=== PATIENT | female | born 1975 | race Caucasian/White ===

== ENCOUNTER 2018-03-07 20:14 | Emergency (ER) | payer OTHER ==
[~2018-03-07] VITALS: Ht 165.1 cm; Wt 154.5 kg
[2018-03-07 20:17] VITALS: TEMP 36.7; Ht 165.1 cm; Wt 154.5 kg
[2018-03-07] MEDS ORDERED: ALBUT/IPRATROP 3MG/0.5MG NEB 3 ML VIAL INH STA (20:24)
[2018-03-07 20:25] VITALS: O2SAT 91
[2018-03-07] MEDS ORDERED: METHYLPREDNISOLONE 125 MG VIAL IV STA (20:26)
[2018-03-07 20:52] LABS: BASO % 0.3 %; BASO ABS # 0.03 K/uL (0-0.2); EOS % 2.3 %; EOS ABS # 0.21 K/uL (0-0.5); HEMATOCRIT 48.3 % (37-47); HEMOGLOBIN 15.8 g/dL (12.0-16.0); IG# 0.02 K/uL (0.00-0.02); LYMPH % 15.1 %; LYMPH ABS # 1.36 K/uL (1.2-3.4); MEAN CELL VOLUME 85.2 fL (80-100); MEAN CORPUSCULAR HEMOGLOBIN 27.9 pg (25-34); MEAN CORPUSCULAR HGB CONC 32.7 g/dl (32-36); MEAN PLATELET VOLUME 12.1 fL (7.4-10.4); MONO % 8.3 %; MONO ABS # 0.75 K/uL (0.11-0.59); NEUT % 73.8 %; NEUT ABS # 6.64 K/uL (1.4-6.5); PLATELET COUNT 151 K/uL (130-400); RED CELL DISTRIBUTION WIDTH CV 16.1 % (11.5-14.5); RED CELL DISTRIBUTION WIDTH SD 50.4 fL (36.4-46.3); WHITE BLOOD COUNT 9.01 K/uL (4.8-10.8)
[2018-03-07] MEDS ORDERED: PRT/20 PO (21:06)
[2018-03-07] MEDS ORDERED: ADVIN25/60 INH (21:06)
[2018-03-07] MEDS ORDERED: THEO600T PO (21:06)
[2018-03-07] MEDS ORDERED: ACET-1256 PO (21:06)
[2018-03-07] MEDS ORDERED: MELO-84 PO (21:06)
[2018-03-07] MEDS ORDERED: CZR25 PO (21:06)
[2018-03-07] MEDS ORDERED: MONT1TAB3 PO (21:06)
[2018-03-07 21:08] LABS: ALBUMIN 3.3 gm/dl (3.4-5.0); ALT/SGPT 14 U/L (12-78); AST/SGOT 7 U/L (15-37); BLOOD UREA NITROGEN 16 mg/dl (7-18); CALCIUM 8.7 mg/dl (8.5-10.1); CARBON DIOXIDE 30 mmol/L (21-32); CREATININE 0.87 mg/dl (0.60-1.20); GLUCOSE 107 mg/dl (70-99); POTASSIUM 3.8 mmol/L (3.5-5.1); SODIUM 142 mmol/L (136-145)
[2018-03-07 21:13] LABS: ALKALINE PHOSPHATASE 98 U/L (45-117); TOTAL PROTEIN 7.3 gm/dl (6.4-8.2)
--- NOTE | 2018-03-07 21:18 | DIAGNOSTIC IMAGING REPORT ---
SINGLE VIEW CHEST CLINICAL HISTORY: Dyspnea. FINDINGS: An AP, portable, upright chest radiograph is obtained. No prior studies are available for comparison at the time of dictation. The examination is degraded by portable technique and patient rotation. The cardiomediastinal silhouette is unremarkable. There is mild nonspecific interstitial thickening. No airspace consolidation or pleural effusion is identified. No pneumothorax is seen. The bony thorax is grossly intact. IMPRESSION: 1. Mild interstitial thickening is nonspecific and may resent a mild infectious/inflammatory pneumonitis. Clinical correlation will be required. 2. No airspace consolidation or pleural effusion is identified. Electronically signed by: Nii Salgado M.D. 03/07/2018 9:17 PM Dictated Date/Time: 03/07/2018 9:16 PM
[2018-03-07] MEDS ORDERED: LEVAQUIN 750MG / 150ML D5W IV STA (21:24)
[2018-03-07] MEDS ORDERED: LEVOFLOXACIN 250 MG TAB PO STA (21:27)
[2018-03-07] MEDS ORDERED: LEVO1TAB35 PO (21:30)
[2018-03-07] MEDS ORDERED: ALBUTEROL HFA 8 GM INHALER INH ONE (21:30)
[2018-03-07] MEDS ORDERED: PRED20TA2 PO (21:30)
[2018-03-07] MEDS ORDERED: VNTHFA/IN INH (21:30)
--- NOTE | 2018-03-07 21:46 | EMERGENCY ROOM VISIT NOTE ---
History Report prepared by Padmini: Katrina Brito Under the Supervision of: Dr. Dwayne Nieves D.O. First contact with patient: 20:21 Chief Complaint: SHORTNESS OF BREATH Stated Complaint: CAN'T BREATH, ASTHMA History of Present Illness The patient is a 43 year old female who presents to the Emergency Room with complaints of persistent SOB starting earlier today. The patient was diagnosed with pneumonia several weeks ago and was on antibiotics. She thinks that her pneumonia is coming back. She is feeling SOB and has pain in her right shoulder blade. She has had a cough producing dark yellow sputum. She has been using her inhalers. She has a history of asthma. She was started on medications for hypertension last week. She smokes 0.5 ppd. Source of History: patient Onset: earlier today Position: chest Quality: other (SOB) Timing: other (persistent) Associated Symptoms: + cough Note: Pt reports right shoulder blade pain. Review of Systems See HPI for pertinent positives & negatives. A total of 10 systems reviewed and were otherwise negative. Past Medical & Surgical Medical Problems: (1) Asthma (2) Pneumonia Family History No pertinent family history stated. Social History Smoking Status: Current Every Day Smoker Marital Status: Occupation Status: unemployed Current/Historical Medications Scheduled Albuterol Hfa (Ventolin Hfa), 2 PUFF INH Q4 Fluticasone Prop/Salmeterol (Advair Diskus 250/50 60 Dose), 1 PUFF INH BID Levofloxacin (Levaquin), 750 MG PO DAILY Losartan Potassium (Losartan Potassium), 25 MG PO QAM Meloxicam (Mobic), 15 MG PO QAM Montelukast Sodium (Singulair), 10 MG PO QAM Pantoprazole (Protonix), 20 MG PO QAM Prednisone (Prednisone Tab), 40 MG PO DAILY Theophylline (Theophylline Er), 600 MG PO QAM Scheduled PRN Acetaminophen (Tylenol), 1,000 MG PO DIRECTED PRN for Pain or Fever Allergies Coded Allergies: Rofecoxib (Verified Allergy, Severe, RESPIRATORY FAILURE, 03/07/18) Physical Exam Vital Signs Date Time Temp Pulse Resp B/P (MAP) Pulse Ox O2 Delivery O2 Flow Rate FiO2 03/07/18 21:56 81 22 184/113 91 03/07/18 20:46 94 Nasal Cannula 3.0 03/07/18 20:31 92 03/07/18 20:25 91 Nasal Cannula 3.0 03/07/18 20:24 88 Room Air 03/07/18 20:17 36.7 89 18 212/144 89 Room Air Physical Exam GENERAL: Patient is awake, alert, mildly anxious appearing, but comfortable. EYES: The conjunctivae are clear. The pupils are round and reactive. EARS, NOSE, MOUTH AND THROAT: The nose is without any evidence of any deformity. Mucous membranes are moist tongue is midline NECK: The neck is nontender and supple. RESPIRATORY: Lung sounds diminished throughout with expiratory wheezes in all qiu. Poor air movement was noted. CARDIOVASCULAR: Regular rate and rhythm noted there no murmurs rubs or gallops normal S1 normal S2 GASTROINTESTINAL: The abdomen is soft. Bowel sounds are present in all quadrants. Abdomen is nontender MUSCULOSKELETAL/EXTREMITIES: There is no evidence of gross deformity full range of motion is noted in the hips and shoulders SKIN: There is no obvious evidence of any rash. There are no petechiae, pallor or cyanosis noted. NEUROLOGIC: Patient is awake alert and oriented x3 Medical Decision & Procedures ER Provider Diagnostic Interpretation: X-ray results as stated below per interpretation by me and the radiologist. SINGLE VIEW CHEST CLINICAL HISTORY: Dyspnea. FINDINGS: An AP, portable, upright chest radiograph is obtained. No prior studies are available for comparison at the time of dictation. The examination is degraded by portable technique and patient rotation. The cardiomediastinal silhouette is unremarkable. There is mild nonspecific interstitial thickening. No airspace consolidation or pleural effusion is identified. No pneumothorax is seen. The bony thorax is grossly intact. IMPRESSION: 1. Mild interstitial thickening is nonspecific and may resent a mild infectious/inflammatory pneumonitis. Clinical correlation will be required. 2. No airspace consolidation or pleural effusion is identified. Electronically signed by: Nii Salgado M.D. 03/07/2018 9:17 PM Dictated Date/Time: 03/07/2018 9:16 PM Laboratory Results 03/07/18 20:28 Red Blood Count 5.67, Mean Corpuscular Volume 85.2, Mean Corpuscular Hemoglobin 27.9, Mean Corpuscular Hemoglobin Concent 32.7, Mean Platelet Volume 12.1, Neutrophils (%) (Auto) 73.8, Lymphocytes (%) (Auto) 15.1, Monocytes (%) (Auto) 8.3, Eosinophils (%) (Auto) 2.3, Basophils (%) (Auto) 0.3, Neutrophils # (Auto) 6.64, Lymphocytes # (Auto) 1.36, Monocytes # (Auto) 0.75, Eosinophils # (Auto) 0.21, Basophils # (Auto) 0.03 03/07/18 20:28 Test 03/07/18 20:28 03/07/18 20:36 03/07/18 20:45 White Blood Count 9.01 K/uL (4.8-10.8) Red Blood Count 5.67 M/uL (4.2-5.4) Hemoglobin 15.8 g/dL (12.0-16.0) Hematocrit 48.3 % (37-47) Mean Corpuscular Volume 85.2 fL (80-100) Mean Corpuscular Hemoglobin 27.9 pg (25-34) Mean Corpuscular Hemoglobin Concent 32.7 g/dl (32-36) Platelet Count 151 K/uL (130-400) Mean Platelet Volume 12.1 fL (7.4-10.4) Neutrophils (%) (Auto) 73.8 % Lymphocytes (%) (Auto) 15.1 % Monocytes (%) (Auto) 8.3 % Eosinophils (%) (Auto) 2.3 % Basophils (%) (Auto) 0.3 % Neutrophils # (Auto) 6.64 K/uL (1.4-6.5) Lymphocytes # (Auto) 1.36 K/uL (1.2-3.4) Monocytes # (Auto) 0.75 K/uL (0.11-0.59) Eosinophils # (Auto) 0.21 K/uL (0-0.5) Basophils # (Auto) 0.03 K/uL (0-0.2) RDW Standard Deviation 50.4 fL (36.4-46.3) RDW Coefficient of Variation 16.1 % (11.5-14.5) Immature Granulocyte % (Auto) 0.2 % Immature Granulocyte # (Auto) 0.02 K/uL (0.00-0.02) Prothrombin Time 10.6 SECONDS (9.0-12.0) Prothromb Time International Ratio 1.0 (0.9-1.1) Activated Partial Thromboplast Time 27.0 SECONDS (21.0-31.0) Partial Thromboplastin Ratio 1.0 Anion Gap 6.0 mmol/L (3-11) Est Creatinine Clear Calc Drug Dose 125.1 ml/min Estimated GFR () 93.9 Estimated GFR (Non- 81.0 BUN/Creatinine Ratio 18.5 (10-20) Calcium Level 8.7 mg/dl (8.5-10.1) Total Bilirubin 0.3 mg/dl (0.2-1) Aspartate Amino Transf (AST/SGOT) 7 U/L (15-37) Alanine Aminotransferase (ALT/SGPT) 14 U/L (12-78) Alkaline Phosphatase 98 U/L (45-117) Troponin I < 0.015 ng/ml (0-0.045) Pro-B-Type Natriuretic Peptide 593 pg/ml (0-450) Total Protein 7.3 gm/dl (6.4-8.2) Albumin 3.3 gm/dl (3.4-5.0) Globulin 4.0 gm/dl (2.5-4.0) Albumin/Globulin Ratio 0.8 (0.9-2) Human Chorionic Gonadotropin, Qual NEG (NEG) Theophylline Level < 2 mcg/ml (10-20) Venous Blood pH 7.39 (7.36-7.41) Venous Blood Partial Pressure CO2 55 mmHg (38.0-50.0) Venous Blood Partial Pressure O2 30 mmHg Venous Blood HCO3 32 mmol/L Venous Blood Oxygen Saturation < 60.0 % Venous Blood Base Excess 5.3 mEq/L Bedside D-Dimer 278 ng/mlFEU (0-450) Laboratory results per my review. Medications Administered Medications (Trade) Dose Ordered Sig/Milly Route Start Time Stop Time Status Last Admin Dose Admin Albuterol/ Ipratropium (Duoneb) 3 ml NOW STAT INH 03/07/18 20:24 03/07/18 20:26 DC 03/07/18 20:39 3 ML Methylprednisolone Sodium Succinate (Solu-Medrol IV) 125 mg NOW STAT IV 03/07/18 20:26 03/07/18 20:27 DC 03/07/18 20:39 125 MG Levofloxacin (Levaquin Tab) 750 mg NOW STAT PO 03/07/18 21:27 03/07/18 21:28 DC 4/29/18 21:52 750 MG Albuterol (Ventolin Hfa Inhaler) 2 puffs NOW ONCE INH 03/07/18 21:30 03/07/18 21:31 DC 03/07/18 21:52 2 PUFFS ECG Per My Interpretation Indication: SOB/dyspnea Rate (beats per minute): 77 Rhythm: normal sinus Findings: nonspecific-ST abn (Inferior, Lateral), no ectopy Comparison ECG Date: no prior available ED Course 2022: The patient was evaluated in room A2. A complete history and physical examination were performed. 2023: Duoneb 3 ml INH. 2025: Solu-Medrol IV 125 mg IV. 2123: Levofloxacin 750 mg IV. 2124: Upon reevaluation, the patient is resting comfortably. I discussed the results and treatment plan with her. She verbalized agreement of the treatment plan. She was discharged home. 2126: Levofloxacin 750 mg PO. 2129: Albuterol 2 puffs INH. Medical Decision Prior records/ancillary studies reviewed. Triage Nursing notes reviewed. The patient's history was concerning for respiratory difficulties. Differential diagnosis: Etiologies such as infections, reactive airway disease, pneumonia, pneumothorax , COPD, CHF, cardiac ischemia, pulmonary embolism, musculoskeletal, gastrointestinal, as well as others were entertained. The patient is a 43-year-old female who presented to the emergency department for an evaluation of very severe shortness of breath. The patient has a history of asthma. Her overall physical exam appear to be consistent with bronchospasm. She was treated with IV fluids IV steroids as well as bronchodilator therapy. Her symptoms continue to improve. She was hypoxic and given her overall condition she was given an antibiotic. I recommended that she stay in the hospital for inpatient management given her hypoxia and her overall condition but the patient refused to stay in the hospital. She was encouraged to rest and avoid any strenuous activity. She was also encouraged to continue all medications as prescribed. I also encouraged her to follow-up with her primary care physician in the morning but return to the emergency department immediately if symptoms change worsen or the need arises. Medication Reconcilliation Current Medication List: was personally reviewed by me Blood Pressure Screening Patient's blood pressure: Elevated blood pressure Blood pressure disposition: Elevated BP felt to be situational Impression Primary Impression: Bronchitis Additional Impressions: Hypoxia Asthma exacerbation Scribe Attestation The scribe's documentation has been prepared under my direction and personally reviewed by me in its entirety. I confirm that the note above accurately reflects all work, treatment, procedures, and medical decision making performed by me. Departure Information Dispostion Home / Self-Care Prescriptions Levofloxacin (Levaquin) 750 Mg Tab 750 MG PO DAILY, #5 TAB Prov: Dwayne Nieves, DO 03/07/18 Prednisone (Prednisone Tab) 20 Mg Tab 40 MG PO DAILY, #10 TAB Prov: Dwayne Nieves, DO 03/07/18 Albuterol Hfa (VENTOLIN HFA) 200 Puffs/95659 Mcg Aers 2 PUFF INH Q4, #1 INHALER Prov: Dwayne Nieves, DO 03/07/18 Referrals Herminio Faith D.O. No Doctor, Assigned Forms HOME CARE DOCUMENTATION FORM, IMPORTANT VISIT INFORMATION Patient Instructions Bronchitis Acute, ED Smoking Cessation, My [facility] Additional Instructions Continue all medications as prescribed. Rest and avoid any strenuous activity. Try to avoid any tobacco use. Call your family doctor to schedule a follow- up appointment. Return to the emergency department immediately if symptoms change worsen or the need arises. Problem Qualifiers Additional Impressions: Asthma exacerbation Asthma severity: moderate Asthma persistence: persistent Qualified Codes: J45.41 - Moderate persistent asthma with (acute) exacerbation
[2018-03-07 21:56] VITALS: BP 184/113; PULSE 81; O2SAT 91
== END 2018-03-07 21:57 | disposition home or self-care (01) ==
LOC: C.EDB 20:16 → C.EDA 21:57
DX: J40 Bronchitis, not specified as acute or chronic (principal); J45.41 Moderate persistent asthma with (acute) exacerbation; R09.02 Hypoxemia; Z79.899 Other long term (current) drug therapy

== ENCOUNTER 2021-02-07 21:58 | Observation (INO) ==
--- OUTSIDE RECORDS SUMMARY | 2021-02-07 22:02 | External Medical Summary | Continuity of Care Document ---
:1975 Author Name Quique Liang Address Unavailable Unavailable , Care Team Providers Name Role Phone Gm Bean [email or web address] [place] Ashley Unavailable Unavailable Problems Hypertension (401.9) (I10) Arthritis (716.90) (M19.90) Asthma (493.90) (J45.909) COPD (chronic obstructive pulmonary disease) (496) (J44.9) Allergies and Adverse Reactions Vioxx (Allergy) Reaction: Shortness of breath Medications Advair Diskus 500-50 MCG/DOSE Inhalation Aerosol Powder Breath Activated; INHALE 1 PUFF TWICE DAILY. Start: 05-Mar-2016 Refills: 0 Pantoprazole Sodium 20 MG Oral Tablet Delayed Release; TAKE 1 TABLET DAILY. Start: 05-Mar-2016 Refills: 0 Theophylline ER 300 MG Oral Tablet Exten ded Release 12 Hour; TAKE 1 TABLET DAILY. Start: 05-Mar-2016 Refills: 0 traMADol HCl - 50 MG Oral Tablet; TAKE 1 TABLET EVERY 6 HOURS NEEDED FOR PAIN. Start: 05-Mar-2016 Quantity: 10 Refills: 0 Montelukast Sodium 10 MG Oral Tablet; TAKE 1 TABLET DAILY. Start: 05-Mar-2016 Refills: 0 Procedures History of Biopsy Soft Tissue Of The Thigh Status: Completed Immunizations Immunizations not documented Family History Sister Family history of hypertension (V17.49) (Z82.49) Status: Act clary Brother Family history of hypertension (V17.49) (Z82.49) Status: Act clary Mother Family history of asthma (V17.5) (Z82.5) Status: Active Social History - Smoking Status Smoker Plan of Treatment Planned Observations Planned Goals not documented Results No Known Results Results not documented
[2021-02-07] MEDS ORDERED: ALBUT/IPRATROP 3MG/0.5MG NEB 3 ML VIAL INH STA (22:21)
[2021-02-07] MEDS ORDERED: methylPREDNISolone 125 MG/2 ML VIAL IV STA (22:21)
[2021-02-07 22:28] LABS: Basophils # (auto) 0.05 K/uL (0-0.2); Basophils % (auto) 0.5 %; Eosinophils # (auto) 0.23 K/uL (0-0.5); Eosinophils % (auto) 2.2 %; Hematocrit (blood only) 51.8 % (37-47); Hemoglobin 16.8 g/dL (12.0-16.0); Immature Granulocytes # (auto) 0.03 K/uL (0.00-0.02); Immature Granulocytes % (auto) 0.3 %; Lymphocytes # (auto) 0.96 K/uL (1.2-3.4); Lymphocytes % (auto) 9.2 %; Mean Corpuscular Hemoglobin 28.1 pg (25-34); Mean Corpuscular Hgb Conc 32.4 g/dL (32-36); Mean Corpuscular Volume 86.8 fL (80-100); Mean Platelet Volume 11.7 fL (7.4-10.4); Monocytes # (auto) 0.67 K/uL (0.11-0.59); Monocytes % (auto) 6.4 %; Neutrophils # (auto) 8.48 K/uL (1.4-6.5); Neutrophils % (auto) 81.4 %; Platelet Count 208 K/uL (130-400); RDW Coefficient of Variation 16.1 % (11.5-14.5); RDW Standard Deviation 51.8 fL (36.4-46.3); Red Blood Count 5.97 M/uL (4.2-5.4); White Blood Count 10.42 K/uL (4.8-10.8)
[2021-02-07] MEDS: MAGNESIUM SULFATE / D5W 1 GM/100 ML BAG IV SCH ×2 (22:29→23:32)
[2021-02-07] MEDS ORDERED: SODIUM CHLORIDE 0.9% 1000ML 1,000 ML IV SCH (22:30)
[2021-02-07 22:41] LABS: Partial Thromboplastin Ratio 1.1; Partial Thromboplastin Time 27.9 Seconds (21.0-31.0)
[2021-02-07 22:53] LABS: Alanine Aminotransferase 16 U/L (12-78); Albumin Globulin Ratio 0.9 (0.9-2); Albumin Level 3.5 gm/dl (3.4-5.0); Alkaline Phosphatase 101 U/L (45-117); Aspartate Aminotransferase 11 U/L (15-37); BUN Creatinine Ratio 24.8 (10-20); Bilirubin,Total 0.2 mg/dl (0.2-1); Blood Urea Nitrogen 18 mg/dl (7-18); Calcium 8.9 mg/dl (8.5-10.1); Carbon Dioxide 29 mmol/L (21-32); Chloride 108 mmol/L (98-107); Est GFR (African American) 113.7; Est GFR (Non-African American) 98.1; Globulin 3.9 gm/dl (2.5-4.0); Glucose 126 mg/dl (70-99); Magnesium 2.1 mg/dl (1.8-2.4); NT Pro B Type Natriuretic Pept 199 pg/ml (0-450); Potassium 3.8 mmol/L (3.5-5.1); Sodium 138 mmol/L (136-145); Total Protein 7.4 gm/dl (6.4-8.2); Troponin I < 0.015 ng/ml (0-0.045)
[2021-02-07 23:14] LABS: Base Excess VBG 2.2 mEq/L; Oxygen Saturation VBG 62.6 %; pH VBG 7.32 (7.36-7.41)
[2021-02-07 23:14] LABS: Influenza A virus by PCR Negative (Neg); Influenza B virus by PCR Negative (Neg); RSV by PCR Negative (Neg); SARS CoV2 RNA(COVID-19) InHosp NEGATIVE (Negative)
--- NOTE | 2021-02-07 23:22 | Emergency Department Note ---
Impression & Plan Acute respiratory failure with hypoxia and hypercapnia, Acute exacerbation of chronic obstructive pulmonary disease ED Provider Note NAME: VICENTE ARREOLA AGE: 46 SEX: F : 1975 ARRIVES VIA: Ambulance INFORMANT: Patient, ED PROVIDER(S): Real Torres MD Chief Complaint: Shortness of breath HPI: Patient does present with shortness of breath. The patient states that it began earlier today. The patient does have a known history of COPD and states that she is supposed to be on oxygen 2 to 3 L as needed but has not used it. Patient is also does use CPAP but does not use it. The patient has had mild intermittently productive cough that is occasionally colored other times clear. The patient states that she has chronic lower extremity swelling which is unchanged from prior. No recent surgeries, travel, or history of DVT or PE. Patient denies any fevers or chills. The patient has not received Covid vaccination at this time. The patient states that she had taken her inhalers and typical treatments for her COPD but it has not improved and it has gotten progressively worse. On presentation the patient was 73% on room air. ROS: See HPI for pertinent positives and negatives. A total of 10 systems were reviewed and otherwise negative. Past medical history: See below Surgical history: See below Social history: See below Physical Exam: GENERAL: Mild distress, oxygen mask and facemask in place. Wearing glasses. EYE EXAM: Normal conjunctiva. PERRL, no anisocoria and EOM's grossly intact w/o pain. NECK: Supple, no nuchal rigidity, no adenopathy, non-tender. No signs of meningismus. LUNGS: Kidney noted, diffuse wheezing throughout. HEART: NSR, no MRG. ABDOMEN: Abdomen soft, non-tender, normo-active bowel sounds, no masses, no rebound or guarding. BACK: No CVA TTP. SKIN: No rashes and no bruising. UPPER EXTREMITIES: Upper extremities are grossly normal. LOWER EXTREMITIES: Grossly normal, trace pretibial edema. Negative Homans' sign bilaterally. NEURO EXAM: A&O x3, cranial nerves II-XII grossly intact, normal speech, moves all 4 extremities on command w/o issue. Differential diagnoses: Reactive airway disease, pneumonia, pneumothorax, COPD, CHF, infections, cardiac ischemia, pulmonary embolism, musculoskeletal, gastrointestinal, as well as other pathologies. Course: Patient was seen and evaluated the bedside. Full history physical exam was performed. EKG: Indication: Shortness of breath Normal sinus rhythm, rate of 93, normal intervals, normal axis, nonspecific ST and T wave abnormality. Imaging Studies: 1 view chest x-ray Increasing fullness/haziness to the right maria teresa/RLL from prior chest x-ray completed July 04, 2018. There is no obvious pneumothorax or pleural effusion. Cardiac monitoring: An order was placed for continuous cardiac monitoring. The monitor shows a rate of 99 with sinus rhythm. MDM: Patient does present concern for shortness of breath. Given the patient's significant hypoxia the patient was placed on oxygen mask. Blood work was obtained along with an EKG troponin chest x-ray. Chest x-ray does show some increased haziness of the right lower lobe. Blood work did show normal white blood cell count. Patient does have elevated hemoglobin at 16.8. Patient's kidney function is unremarkable. Troponin undetectable. Covid flu and RSV negative. The patient's VBG showed CO2 retention with pH of 7.3. PCO2 is 59. Patient had gotten up to use the restroom but was not on oxygen. The patient did have a desaturation episode of 69%. She was placed on oxygen. The patient did have improvement along with continuing her DuoNeb. She was at 92%. I did call for BiPAP and respiratory. The patient was placed on BiPAP to decrease patient's work of breathing. Patient did have improvement in her symptoms. I did speak the on-call hospitalist and the patient was admitted to the medicine service Dr. Cruz. Given the patient's productive sputum with mild increase in haziness of the right lower lobe I did order cefepime. Blood cultures already obtained. MRSA swab also added at this time. Critical Care: I have personally spent 77 minutes of critical care time in direct management of this patient. This includes bedside care, interpretation of diagnostic studies, and testing, discussion with consultants, patient, and family members, and other require inpatient management activities. This 77 minutes is in excess of all separately billable procedures. Past Med/Surg History Medical History COPD (chronic obstructive pulmonary disease) H/O: HTN (hypertension) MAYNOR (obstructive sleep apnea) Social History Smoking Status: Current every day smoker Feels Safe at Home: Yes Allergies Allergies Allergy/AdvReac Type Severity Reaction Status Date / Time rofecoxib Allergy Severe RESPIRATORY Verified 02/07/21 23:26 FAILURE Home Meds Home Medications Medication Instructions Recorded Confirmed albuterol sulfate 2 puff INHALATION Q6 PRN 02/07/21 02/07/21 amlodipine 10 mg PO DAILY 02/07/21 02/07/21 diclofenac sodium 75 mg PO DAILY 02/07/21 02/07/21 furosemide 20 mg PO DAILY 02/07/21 02/07/21 losartan 100 mg PO DAILY 02/07/21 02/07/21 montelukast 10 mg PO DAILY 02/07/21 02/07/21 pantoprazole 20 mg PO DAILY 02/07/21 02/07/21 theophylline 300 mg PO DAILY 02/07/21 02/07/21 Results & Data (ED) Vital Signs Vital Signs - 24 hr 02/07/21 22:05 02/07/21 22:07 02/07/21 22:21 Temperature 36.7 C Temperature Source Oral Pulse Rate 92 H 92 H Pulse Rate [Right Finger] Pulse Rate from SpO2 Sensor 90 Respiratory Rate 18 24 Respiratory Effort / Characteristics Non-Labored Spontaneous Short of Breath SOB on Exertion Respiratory Depth Normal Respiratory Pattern Regular Blood Pressure 142/104 H 142/104 H Blood Pressure Mean 116 116 Blood Pressure Position Lying Pulse Oximetry 73 L 96 95 Oxygen Delivery Method Room Air Oxymask Oxygen Flow Rate 0 4 Fraction of Inspired Oxygen Sepsis Recent Fever Within 48 Hours No Sepsis New/Unexplained Change in Mental Status No Sepsis Action Taken by Nursing No Action Required Oxygen Flow Rate - Titration 4 Pulse Oximetry Post Tiitration 94 02/07/21 22:30 02/07/21 22:57 02/07/21 23:41 Temperature Temperature Source Pulse Rate 99 H 99 H Pulse Rate [Right Finger] 82 Pulse Rate from SpO2 Sensor 99 H Respiratory Rate 26 H 23 28 H Respiratory Effort / Characteristics Spontaneous Short of Breath Spontaneous Labored Short of Breath Respiratory Depth Respiratory Pattern Tachypnea Blood Pressure 147/82 H Blood Pressure Mean 103 Blood Pressure Position Pulse Oximetry 95 95 96 Oxygen Delivery Method Oxymask Oxygen Flow Rate 4 Fraction of Inspired Oxygen 45 Sepsis Recent Fever Within 48 Hours Sepsis New/Unexplained Change in Mental Status Sepsis Action Taken by Nursing Oxygen Flow Rate - Titration Pulse Oximetry Post Tiitration Home Medications Current Medication List: was personally reviewed by me Laboratory Data Attestation: I reviewed the patient's lab results. Result diagrams: 02/07/21 22:20 02/07/21 22:20 Lab Results 02/07/21 02/07/21 02/07/21 Range/Units 22:20 22:20 22:20 WBC 10.42 (4.8-10.8) K/uL RBC 5.97 H (4.2-5.4) M/uL Hgb 16.8 H (12.0-16.0) g/dL Hct 51.8 H (37-47) % MCV 86.8 (80-100) fL MCH 28.1 (25-34) pg MCHC 32.4 (32-36) g/dL RDW Std Deviation 51.8 H (36.4-46.3) fL RDW Coeff of Nakul 16.1 H (11.5-14.5) % Plt Count 208 (130-400) K/uL MPV 11.7 H (7.4-10.4) fL Immature Gran % (Auto) 0.3 % Neut % (Auto) 81.4 % Lymph % (Auto) 9.2 % [place] % (Auto) 6.4 % Eos % (Auto) 2.2 % Baso % (Auto) 0.5 % Neut # (Auto) 8.48 H (1.4-6.5) K/uL Lymph # (Auto) 0.96 L (1.2-3.4) K/uL [place] # (Auto) 0.67 H (0.11-0.59) K/uL Eos # (Auto) 0.23 (0-0.5) K/uL Baso # (Auto) 0.05 (0-0.2) K/uL Immature Gran # (Auto) 0.03 H (0.00-0.02) K/uL PT 10.0 (9.0-12.0) Seconds INR 1.0 (0.9-1.1) APTT 27.9 (21.0-31.0) Seconds PTT Ratio 1.1 VBG pH (7.36-7.41) VBG pCO2 (38-50) mmHg VBG pO2 mmHg VBG HCO3 mmol/L VBG O2 Saturation % VBG Base Excess mEq/L Barometric Pressure mm/Hg Sodium 138 (136-145) mmol/L Potassium 3.8 (3.5-5.1) mmol/L Chloride 108 H (98-107) mmol/L Carbon Dioxide 29 (21-32) mmol/L Anion Gap 2.0 L (3-11) BUN 18 (7-18) mg/dl Creatinine 0.73 (0.6-1.2) mg/dl Est Cr Clr Drug Dosing 137.0 ml/min Est GFR ( Amer) 113.7 Est GFR (Non-Af Amer) 98.1 BUN/Creatinine Ratio 24.8 H (10-20) Glucose 126 H (70-99) mg/dl Calcium 8.9 (8.5-10.1) mg/dl Magnesium 2.1 (1.8-2.4) mg/dl Total Bilirubin 0.2 (0.2-1) mg/dl AST 11 L (15-37) U/L ALT 16 (12-78) U/L Alkaline Phosphatase 101 (45-117) U/L Troponin I < 0.015 (0-0.045) ng/ml NT-Pro-B Natriuret Pep 199 (0-450) pg/ml Total Protein 7.4 (6.4-8.2) gm/dl Albumin 3.5 (3.4-5.0) gm/dl Globulin 3.9 (2.5-4.0) gm/dl Albumin/Globulin Ratio 0.9 (0.9-2) Specimen Hemolysis COVID-19 Eval Order SARS-CoV-2 (PCR) (Negative) Influenza Type A (PCR) (Neg) Influenza Type B (PCR) (Neg) RSV (RT-PCR) (Neg) 02/07/21 02/07/21 02/07/21 Range/Units 22:26 22:26 23:01 WBC (4.8-10.8) K/uL RBC (4.2-5.4) M/uL Hgb (12.0-16.0) g/dL Hct (37-47) % MCV (80-100) fL MCH (25-34) pg MCHC (32-36) g/dL RDW Std Deviation (36.4-46.3) fL RDW Coeff of Nakul (11.5-14.5) % Plt Count (130-400) K/uL MPV (7.4-10.4) fL Immature Gran % (Auto) % Neut % (Auto) % Lymph % (Auto) % [place] % (Auto) % Eos % (Auto) % Baso % (Auto) % Neut # (Auto) (1.4-6.5) K/uL Lymph # (Auto) (1.2-3.4) K/uL [place] # (Auto) (0.11-0.59) K/uL Eos # (Auto) (0-0.5) K/uL Baso # (Auto) (0-0.2) K/uL Immature Gran # (Auto) (0.00-0.02) K/uL PT (9.0-12.0) Seconds INR (0.9-1.1) APTT (21.0-31.0) Seconds PTT Ratio VBG pH 7.32 L (7.36-7.41) VBG pCO2 59 H (38-50) mmHg VBG pO2 33 mmHg VBG HCO3 30 mmol/L VBG O2 Saturation 62.6 % VBG Base Excess 2.2 mEq/L Barometric Pressure 736.0 mm/Hg Sodium (136-145) mmol/L Potassium (3.5-5.1) mmol/L Chloride (98-107) mmol/L Carbon Dioxide (21-32) mmol/L Anion Gap (3-11) BUN (7-18) mg/dl Creatinine (0.6-1.2) mg/dl Est Cr Clr Drug Dosing ml/min Est GFR ( Amer) Est GFR (Non-Af Amer) BUN/Creatinine Ratio (10-20) Glucose (70-99) mg/dl Calcium (8.5-10.1) mg/dl Magnesium (1.8-2.4) mg/dl Total Bilirubin (0.2-1) mg/dl AST (15-37) U/L ALT (12-78) U/L Alkaline Phosphatase (45-117) U/L Troponin I (0-0.045) ng/ml NT-Pro-B Natriuret Pep (0-450) pg/ml Total Protein (6.4-8.2) gm/dl Albumin (3.4-5.0) gm/dl Globulin (2.5-4.0) gm/dl Albumin/Globulin Ratio (0.9-2) Specimen Hemolysis COVID-19 Eval Order CovFluRsv at [facility] SARS-CoV-2 (PCR) NEGATIVE (Negative) Influenza Type A (PCR) Negative (Neg) Influenza Type B (PCR) Negative (Neg) RSV (RT-PCR) Negative (Neg) Administered Medications Magnesium Sulfate/Dextrose (Magnesium Sulfate / D5w) 1 gm in 100 mls @ 100 mls/hr IV Q1H PATRICIA Stop: 02/08/21 00:29 Last Admin: 02/07/21 23:32 Dose: 100 mls/hr Documented by: [id number] Infusion: 02/07/21 23:29 Dose: 100 mls/hr Documented by: [id number] Admin: 02/07/21 22:29 Dose: 100 mls/hr Documented by: [id number] Discontinued Medications Albuterol (Albut/Ipratrop 3mg/0.5mg Neb 3 Ml Vial) 12 ml INH ONE STA Stop: 02/07/21 22:22 Last Admin: 02/07/21 22:56 Dose: 12 ml Documented by: [id number] Sodium Chloride (Nss 1000ml) 1,000 mls @ 999 mls/hr IV .Q1H1M PATRICIA Stop: 02/07/21 23:30 Last Infusion: 02/07/21 23:32 Dose: 0 mls/hr Documented by: [id number] Admin: 02/07/21 22:29 Dose: 999 mls/hr Documented by: [id number] Cefepime HCl (Maxipime) 2,000 mg in 20 mls @ 5 mls/min IV NOW STA; Protocol Stop: 02/07/21 23:40 Last Admin: 02/07/21 23:50 Dose: 5 mls/min Documented by: [id number] Methylprednisolone (Methylprednisolone 125 Mg/2 Ml Vial) 125 mg IV NOW STA Stop: 02/07/21 22:22 Last Admin: 02/07/21 22:29 Dose: 125 mg Documented by: [id number] Discharge Plan Visit Data Chief Complaint: Shortness of Breath/Dyspnea Stated Complaint: shortness of breath ED Provider: Real Torres Discharge Problem: Acute respiratory failure with hypoxia and hypercapnia, Acute exacerbation of chronic obstructive pulmonary disease Forms Stand Alone Forms: [facility] Prescriptions Prescriptions: No Action pantoprazole 20 mg tablet,delayed release (DR/EC) 20 mg PO DAILY RF: 0 amlodipine 10 mg tablet 10 mg PO DAILY RF: 0 theophylline 600 mg tablet extended release 24 hr 300 mg PO DAILY RF: 0 diclofenac sodium 75 mg tablet,delayed release (DR/EC) 75 mg PO DAILY RF: 0 montelukast 10 mg tablet 10 mg PO DAILY RF: 0 furosemide 20 mg tablet 20 mg PO DAILY RF: 0 albuterol sulfate 90 mcg/actuation HFA aerosol inhaler 2 puff INHALATION Q6 PRN (Reason: Shortness Of Breath) RF: 0 losartan 100 mg tablet 100 mg PO DAILY RF: 0
[2021-02-07] MEDS ORDERED: CEFEPIME 2,000 MG/20 ML VIAL IV STA (23:37)
[2021-02-08] MEDS ORDERED: FUROSEMIDE 40 MG/4 ML VIAL IV STA (00:08)
--- NOTE | 2021-02-08 00:08 | History & Physical Report ---
Date of Service February 08, 2021 Assessment & Plan (1) Acute respiratory failure with hypoxia and hypercapnia: Acute respiratory failure with hypoxia and hypercapnia/COPD exacerbation- Given Solu-Medrol 125 mg IV in ED Continue Solu-Medrol 40 mg IV every 8 hours Duonebs every 4 hours while awake and every 2 hours when necessary. Presently on BiPAP per protocol. Target pulse ox 92 to 94%. Ceftriaxone 2 g IV daily Azithromycin 500 mg IV daily Guaifenesin extended release 600 mg p.o. twice daily Tobacco cessation counseling Advised medical compliance with discharge to home with use of oxygen and CPAP at bedtime as directed Present on Admission?: Yes (2) Acute exacerbation of chronic obstructive pulmonary disease: See above Check theophylline level Present on Admission?: Yes (3) Hypertension: Hypertension/lower extremity edema- Continue amlodipine and losartan. Hold diclofenac. Give furosemide 40 mg IV x1 in the ED tonight, and then continue 20 mg p.o. every morning She did have an echocardiogram on 07/06/2018, with ejection fraction 60-65% Present on Admission?: Yes (4) Lower extremity edema: See above Present on Admission?: Yes (5) MAYNOR (obstructive sleep apnea): Presently on BiPAP in the ED, to continue. May ultimately require CPAP at at bedtime, if converted to daytime nasal cannula Present on Admission?: Yes (6) GERD (gastroesophageal reflux disease): Continue pantoprazole 20 mg daily Present on Admission?: Yes (7) Tobacco use disorder: Tobacco cessation counseling Present on Admission?: Yes (8) Morbid obesity with BMI of 60.0-69.9, adult: Dietary counseling Present on Admission?: Yes History of Present Illness Chief Complaint: The patient presents to the emergency department with progressively worsening shortness of breath and dyspnea on exertion over the past several days Primary Care Provider: Herminio Faith The patient is a 46-year-old female with a past medical history including hypertension, lower extremity edema, asthma, GERD, COPD and morbid obesity. The patient reports that she has not worn the 2 to 3 L oxygen and CPAP that she has been prescribed. She reports that her cough is intermittently productive of green mucus. She denies any recent travels or sick exposures. She was COVID-19 negative in the emergency department this evening. Her last hospitalization was from 07/04-07/06/2018 for similar symptoms. Allergies Allergy/AdvReac Type Severity Reaction Status Date / Time rofecoxib Allergy Severe RESPIRATORY Verified 02/07/21 23:26 FAILURE Home Medications Medication Instructions Recorded Confirmed Type albuterol sulfate 2 puff INHALATION Q6 PRN 02/07/21 02/07/21 History amlodipine 10 mg PO DAILY 02/07/21 02/07/21 History diclofenac sodium 75 mg PO DAILY 02/07/21 02/07/21 History furosemide 20 mg PO DAILY 02/07/21 02/07/21 History losartan 100 mg PO DAILY 02/07/21 02/07/21 History montelukast 10 mg PO DAILY 02/07/21 02/07/21 History pantoprazole 20 mg PO DAILY 02/07/21 02/07/21 History theophylline 300 mg PO DAILY 02/07/21 02/07/21 History Past Med/Surg History Medical History COPD (chronic obstructive pulmonary disease) H/O: HTN (hypertension) MAYNOR (obstructive sleep apnea) Social History Smoking Status: Current every day smoker Hx Alcohol Use: Yes Alcohol type: other Hx Substance Use: No Preferred Language: Upper Sorbian Beliefs That Will Affect Care: None Current Living Situation: Spouse Feels Safe at Home: Yes Safety Concerns: Feels Safe At This Time Assistive Devices: BiPap, Glasses and Oxygen - Continuous Review of Systems Review of Systems: The patient denies chest pain, palpitations, lower extremity swelling, sore throat, fevers, chills, sweats, nausea, vomiting, diarrhea , constipation, abdominal pain, pelvic pain, blood in urine or stool, dysuria, urinary frequency or urgency, lightheadedness, dizziness, headache, memory loss, loss of consciousness, rash, abnormal bruising or bleeding, imbalance, focal weakness, numbness or tingling in arms or legs, generalized arthralgias or myalgias, back or neck pain, or night sweats. The review of systems is otherwise negative other than for that already noted above, and at least 10 systems have been reviewed. Physical Exam Physical Exam: The patient is awake, alert and oriented 3, well developed and well nourished, is presently wearing BiPAP mask, sitting upright in bed and in mild acute distress. HEENT--PERRL, EOMI, mucous membranes and oropharynx dry. Neck--supple. No JVD. No bruits. Thyroid normal, trachea midline, no adenopathy. Heart--normal S1 and S2. No murmurs, rubs or gallops. Lungs--coarse breath sounds and wheezes bilaterally left greater than right. Mild respiratory distress with accessory muscle use wearing BiPAP mask. Abdomen--normal bowel sounds and soft. Nontender. Nondistended. Morbidly obese Extremities--no cyanosis or clubbing. No edema. Dermatologic--normal skin turgor, normal color, no abnormal lymph nodes, no rash. Neurologic--cranial nerves II through XII grossly intact Rheumatologic--limited exam due to breathing Psychiatric--normal affect. Results & Data Results & Data ([facility]) Vital Signs (Past 12 Hours) Vital Signs Temp Pulse Pulse Resp BP Pulse Ox 02/07/21 23:41 99 H 28 H 96 02/07/21 22:57 82 23 95 02/07/21 22:30 99 H 26 H 147/82 H 95 02/07/21 22:21 95 02/07/21 22:07 92 H 24 142/104 H 96 02/07/21 22:05 98.1 F 92 H 18 142/104 H 73 L Laboratory Results Laboratory Results WBC 10.42 K/uL (4.8-10.8) 02/07/21 22:20 RBC 5.97 M/uL (4.2-5.4) H 02/07/21 22:20 Hgb 16.8 g/dL (12.0-16.0) H 02/07/21 22:20 Hct 51.8 % (37-47) H 02/07/21 22:20 MCV 86.8 fL (80-100) 02/07/21 22:20 MCH 28.1 pg (25-34) 02/07/21 22:20 MCHC 32.4 g/dL (32-36) 02/07/21 22:20 RDW Std Deviation 51.8 fL (36.4-46.3) H 02/07/21 22:20 RDW Coeff of Nakul 16.1 % (11.5-14.5) H 02/07/21 22:20 Plt Count 208 K/uL (130-400) 04/01/21 22:20 MPV 11.7 fL (7.4-10.4) H 02/07/21 22:20 Immature Gran % (Auto) 0.3 % 02/07/21 22:20 Neut % (Auto) 81.4 % 02/07/21 22:20 Lymph % (Auto) 9.2 % 02/07/21 22:20 [place] % (Auto) 6.4 % 02/07/21 22:20 Eos % (Auto) 2.2 % 02/07/21 22:20 Baso % (Auto) 0.5 % 02/07/21 22:20 Neut # (Auto) 8.48 K/uL (1.4-6.5) H 02/07/21 22:20 Lymph # (Auto) 0.96 K/uL (1.2-3.4) L 02/07/21 22:20 [place] # (Auto) 0.67 K/uL (0.11-0.59) H 02/07/21 22:20 Eos # (Auto) 0.23 K/uL (0-0.5) 02/07/21 22:20 Baso # (Auto) 0.05 K/uL (0-0.2) 02/07/21 22:20 Immature Gran # (Auto) 0.03 K/uL (0.00-0.02) H 02/07/21 22:20 PT 10.0 Seconds (9.0-12.0) 02/07/21 22:20 INR 1.0 (0.9-1.1) 02/07/21 22:20 APTT 27.9 Seconds (21.0-31.0) 02/07/21 22:20 PTT Ratio 1.1 02/07/21 22:20 VBG pH 7.32 (7.36-7.41) L 02/07/21 23:01 VBG pCO2 59 mmHg (38-50) H 02/07/21 23:01 VBG pO2 33 mmHg 02/07/21 23:01 VBG HCO3 30 mmol/L 02/07/21 23:01 VBG O2 Saturation 62.6 % 02/07/21 23:01 VBG Base Excess 2.2 mEq/L 02/07/21 23: Barometric Pressure 736.0 mm/Hg 02/07/21 23:01 Sodium 138 mmol/L (136-145) 02/07/21 22:20 Potassium 3.8 mmol/L (3.5-5.1) 02/07/21 22:20 Chloride 108 mmol/L (98-107) H 02/07/21 22:20 Carbon Dioxide 29 mmol/L (21-32) 02/07/21 22:20 Anion Gap 2.0 (3-11) L 02/07/21 22:20 BUN 18 mg/dl (7-18) 02/07/21 22:20 Creatinine 0.73 mg/dl (0.6-1.2) 02/07/21 22:20 Est Cr Clr Drug Dosing 137.0 ml/min 02/07/21 22:20 Est GFR ( Amer) 113.7 02/07/21 22:20 Est GFR (Non-Af Amer) 98.1 02/07/21 22:20 BUN/Creatinine Ratio 24.8 (10-20) H 02/07/21 22:20 Glucose 126 mg/dl (70-99) H 02/07/21 22:20 Calcium 8.9 mg/dl (8.5-10.1) 02/07/21 22:20 Magnesium 2.1 mg/dl (1.8-2.4) 02/07/21 22:20 Total Bilirubin 0.2 mg/dl (0.2-1) 02/07/21 22:20 AST 11 U/L (15-37) L 02/07/21 22:20 ALT 16 U/L (12-78) 02/07/21 22:20 Alkaline Phosphatase 101 U/L (45-117) 02/07/21 22:20 Troponin I < 0.015 ng/ml (0-0.045) 02/07/21 22:20 NT-Pro-B Natriuret Pep 199 pg/ml (0-450) 02/07/21 22:20 Total Protein 7.4 gm/dl (6.4-8.2) 02/07/21 22:20 Albumin 3.5 gm/dl (3.4-5.0) 02/07/21 22:20 Globulin 3.9 gm/dl (2.5-4.0) 02/07/21 22:20 Albumin/Globulin Ratio 0.9 (0.9-2) 02/07/21 22:20 Specimen Hemolysis 02/07/21 22:20 Urine Color Yellow 02/08/21 01:32 Urine Appearance Clear (Clear) 02/08/21 01:32 Urine pH 5.0 (4.5-7.5) 02/08/21 01:32 Ur Specific [place] 1.012 (1.000-1.030) 02/08/21 01:32 Urine Protein Negative (Negative) 02/08/21 01:32 Urine Glucose (UA) Negative (Negative) 02/08/21 01:32 Urine Ketones Negative (Negative) 02/08/21 01:32 Urine Blood 2+ (Negative) H 02/08/21 01:32 Urine Nitrite Negative (Negative) 02/08/21 01:32 Urine Bilirubin Negative (Negative) 02/08/21 01:32 Urine Urobilinogen Negative (Negative) 02/08/21 01:32 Ur Leukocyte Esterase Trace (Negative) H 02/08/21 01:32 Urine WBC (Auto) 1-5 /hpf (0-5) 02/08/21 01:32 Urine RBC (Auto) 10-30 /hpf (0-4) H 02/08/21 01:32 U Hyaline Cast (Auto) 0 /lpf (0-5) 02/08/21 01:32 U Epithel Cells (Auto) 5-10 /lpf (0-5) H 02/08/21 01:32 Urine Bacteria (Auto) Negative (Negative) 02/08/21 01:32 Nasal Screen MRSA (PCR) Negative (Negative) 02/07/21 23:42 Theophylline 3 mcg/ml (10-20) L 02/07/21 22:20 COVID-19 Eval Order CovFluRsv at [facility] 02/07/21 22:26 SARS-CoV-2 (PCR) NEGATIVE (Negative) 02/07/21 22:26 Influenza Type A (PCR) Negative (Neg) 02/07/21 22:26 Influenza Type B (PCR) Negative (Neg) 02/07/21 22:26 RSV (RT-PCR) Negative (Neg) 02/07/21 22:26 Code Status & VTE Plan Code Status Full code VTE Prophylaxis Plan VTE Prophylaxis will be ordered: Yes PG Care Time/CCT Total # of Minutes Spent Total Time Spent with Patient: Total time spent is greater than 50% in coordination of care (as documented) at patient's floor/unit and/or counseling patient: Coding Level of Care Code 29992 Initial Inpt Care Lvl 3 Diagnoses Acute respiratory failure with hypoxia and hypercapnia J96.01; J96.02 Acute exacerbation of chronic obstructive pulmonary disease J44.1 Hypertension I10 Lower extremity edema R60.0 MAYNOR (obstructive sleep apnea) G47.33 GERD (gastroesophageal reflux disease) K21.9 Tobacco use disorder F17.200 Morbid obesity with BMI of 60.0-69.9, adult E66.01; Z68.44
[2021-02-08] MEDS ORDERED: ACETAMINOPHEN 325 MG TAB PO PRN (01:06)
[2021-02-08] MEDS ORDERED: ONDANSETRON INJ 2 MG/ML 2 ML VIAL IV PRN (01:06)
[2021-02-08] MEDS: AZITHROMYCIN 500 MG in DEXTROSE 5% 250 ML IV SCH (01:37)
[2021-02-08 02:25] LABS: Appearance Urine Clear (Clear); Bacteria Urine Automated Negative (Negative); Bilirubin Urine Negative (Negative); Blood Urine 2+ (Negative); Cast Urine Automated 0 /lpf (0-5); Color Urine Yellow; Glucose Urine UA Negative (Negative); Ketones Urine Negative (Negative); Leukocyte Esterase Urine Trace (Negative); Nitrite Urine Negative (Negative); Protein Urine Negative (Negative); Specific Gravity Urine 1.012 (1.000-1.030); Urobilinogen Urine Negative (Negative)
[2021-02-08] MEDS: methylPREDNISolone 40 MG in SYRINGE 0 ML IV SCH ×3 (05:45→20:16)
[2021-02-08] MEDS: HEPARIN SOD 5,000 UNIT/0.5 ML VIAL SQ SCH ×3 (05:45→20:17)
[2021-02-08 05:49] LABS: Basophils # (auto) 0.02 K/uL (0-0.2); Basophils % (auto) 0.2 %; Eosinophils # (auto) 0.01 K/uL (0-0.5); Eosinophils % (auto) 0.1 %; Hematocrit (blood only) 50.6 % (37-47); Immature Granulocytes # (auto) 0.01 K/uL (0.00-0.02); Immature Granulocytes % (auto) 0.1 %; Lymphocytes % (auto) 3.6 %; Mean Corpuscular Hemoglobin 27.6 pg (25-34); Mean Corpuscular Hgb Conc 31.6 g/dL (32-36); Mean Corpuscular Volume 87.2 fL (80-100); Mean Platelet Volume 11.6 fL (7.4-10.4); Monocytes # (auto) 0.04 K/uL (0.11-0.59); Monocytes % (auto) 0.5 %; Neutrophils # (auto) 8.02 K/uL (1.4-6.5); Neutrophils % (auto) 95.5 %; Platelet Count 184 K/uL (130-400); RDW Coefficient of Variation 15.8 % (11.5-14.5); RDW Standard Deviation 50.1 fL (36.4-46.3)
[2021-02-08 06:13] LABS: Alanine Aminotransferase 14 U/L (12-78); Albumin Level 3.3 gm/dl (3.4-5.0); Aspartate Aminotransferase 5 U/L (15-37); BUN Creatinine Ratio 24.1 (10-20); Blood Urea Nitrogen 16 mg/dl (7-18); Calcium 8.2 mg/dl (8.5-10.1); Carbon Dioxide 29 mmol/L (21-32); Chloride 107 mmol/L (98-107); Creatinine Clr Calc Pharmacy 161.7 ml/min; Est GFR (African American) 121.3; Est GFR (Non-African American) 104.7; Glucose 149 mg/dl (70-99); Sodium 140 mmol/L (136-145)
[2021-02-08 06:17] LABS: Albumin Globulin Ratio 0.8 (0.9-2); Alkaline Phosphatase 93 U/L (45-117); Bilirubin,Total 0.2 mg/dl (0.2-1); Globulin 4.2 gm/dl (2.5-4.0); Total Protein 7.5 gm/dl (6.4-8.2); Troponin I < 0.015 ng/ml (0-0.045)
--- NOTE | 2021-02-08 06:58 | XRay Report ---
XR chest 1V portable CLINICAL HISTORY: Dyspnea COMPARISON STUDY: 07/04/2018 FINDINGS: The cardiac and mediastinal contours appear normal. There is no focal pulmonary consolidati on. There are no pleural effusions. Subtle interstitial thickening remains stable. There is no overt failure. IMPRESSION: 1. Stable subtle nonspecific interstitial thickening.. ACT 112: Negative or not required by law. Electronically signed by: Rafael Baker M.D. 02/08/2021 6:56 AM
[2021-02-08] MEDS: ALBUT/IPRATROP 3MG/0.5MG NEB 3 ML VIAL NEB SCH ×4 (07:23→19:10)
[2021-02-08] MEDS: LOSARTAN POTASSIUM 50 MG TAB PO SCH (08:35)
[2021-02-08] MEDS: MONTELUKAST SODIUM 10 MG TABLET PO SCH (08:36)
[2021-02-08] MEDS: THEOPHYLLINE 300MG EXTENDED REL TAB PO SCH (08:36)
[2021-02-08] MEDS: FUROSEMIDE 20 MG TAB PO SCH (08:36)
[2021-02-08] MEDS: DICLOFENAC SODIUM 75 MG TABCR PO SCH (08:37)
[2021-02-08] MEDS: amLODIPine BESYLATE 5 MG TAB PO SCH (08:37)
[2021-02-08] MEDS: guaiFENesin 600 MG TABCR PO SCH ×2 (08:37→19:30)
[2021-02-08] MEDS: cefTRIAXone SODIUM 2,000 MG in DEXTROSE 5% 50 ML IV SCH (08:40)
[2021-02-08] MEDS ORDERED: PANTOprazole 40 MG TAB PO SCH (09:00)
--- NOTE | 2021-02-08 12:33 | History & Physical Bridge Note ---
Date of Service February 08, 2021 History & Physical Bridge Note I have examined the patient, reviewed the History & Physical and in the interval since the performance of the History & Physical I have noted the following changes of clinical significance: patient doing well, breathing easier, has a dry cough, she is on 2.5L, no distress at all she says she did not get her BIPAP/CPAP because she needs an updated sleep study discussed going home tomorrow, she agrees
--- NOTE | 2021-02-08 16:05 | Electrocardiogram Report ---
Test Reason : Blood Pressure : / mmHG Vent. Rate : 093 BPM Atrial Rate : 093 BPM P-R Int : 136 ms QRS Dur : 096 ms QT Int : 354 ms P-R-T Axes : 067 043 098 degrees QTc Int : 440 ms Normal sinus rhythm Possible Left atrial enlargement Nonspecific ST and T wave abnormality Abnormal ECG When compared with ECG of 06-JUL-2018 11:51, Nonspecific T wave abnormality no longer evident in Inferior leads T wave inversion no longer evident in Lateral leads Confirmed by Dwayne Bean ([id number]) on 02/08/2021 4:05:17 PM Referred By: REFERRED SELF Confirmed By:Dwayne Bean
--- NOTE | 2021-02-08 16:09 | Electrocardiogram Report ---
Test Reason : Blood Pressure : / mmHG Vent. Rate : 061 BPM Atrial Rate : 061 BPM P-R Int : 126 ms QRS Dur : 100 ms QT Int : 404 ms P-R-T Axes : 069 036 115 degrees QTc Int : 406 ms Sinus rhythm with marked sinus arrhythmia Possible Left atrial enlargement Nonspecific ST and T wave abnormality Abnormal ECG When compared with ECG of 07-FEB-2021 22:04, (unconfirmed) Vent. rate has decreased BY 32 BPM T wave inversion more evident in Anterior leads Confirmed by Dwayne Bean ([id number]) on 02/08/2021 4:09:09 PM Referred By: REFERRED SELF Confirmed By:Dwayne Bean
[2021-02-09] MEDS: methylPREDNISolone 40 MG in SYRINGE 0 ML IV SCH ×2 (06:06→13:40)
[2021-02-09] MEDS: HEPARIN SOD 5,000 UNIT/0.5 ML VIAL SQ SCH ×2 (06:06→13:41)
[2021-02-09] MEDS: AZITHROMYCIN 500 MG in DEXTROSE 5% 250 ML IV SCH (06:06)
[2021-02-09 06:40] LABS: Basophils # (auto) 0.01 K/uL (0-0.2); Basophils % (auto) 0.1 %; Hematocrit (blood only) 49.2 % (37-47); Immature Granulocytes # (auto) 0.02 K/uL (0.00-0.02); Immature Granulocytes % (auto) 0.2 %; Lymphocytes # (auto) 0.51 K/uL (1.2-3.4); Lymphocytes % (auto) 5.7 %; Mean Corpuscular Hemoglobin 27.6 pg (25-34); Mean Corpuscular Hgb Conc 32.5 g/dL (32-36); Mean Corpuscular Volume 84.8 fL (80-100); Mean Platelet Volume 11.8 fL (7.4-10.4); Monocytes # (auto) 0.39 K/uL (0.11-0.59); Monocytes % (auto) 4.3 %; Neutrophils # (auto) 8.08 K/uL (1.4-6.5); Neutrophils % (auto) 89.7 %; Platelet Count 185 K/uL (130-400); RDW Standard Deviation 49.9 fL (36.4-46.3); White Blood Count 9.01 K/uL (4.8-10.8)
[2021-02-09 07:05] LABS: Alanine Aminotransferase 12 U/L (12-78); Albumin Level 3.2 gm/dl (3.4-5.0); Aspartate Aminotransferase 5 U/L (15-37); BUN Creatinine Ratio 25.1 (10-20); Blood Urea Nitrogen 15 mg/dl (7-18); Calcium 8.5 mg/dl (8.5-10.1); Carbon Dioxide 29 mmol/L (21-32); Chloride 107 mmol/L (98-107); Creatinine Clr Calc Pharmacy 186.4 ml/min; Est GFR (African American) 127.2; Est GFR (Non-African American) 109.8; Glucose 130 mg/dl (70-99); Potassium 4.1 mmol/L (3.5-5.1); Sodium 138 mmol/L (136-145)
[2021-02-09 07:09] LABS: Albumin Globulin Ratio 0.9 (0.9-2); Alkaline Phosphatase 80 U/L (45-117); Bilirubin,Total 0.3 mg/dl (0.2-1); Globulin 3.7 gm/dl (2.5-4.0); Total Protein 6.9 gm/dl (6.4-8.2); Troponin I < 0.015 ng/ml (0-0.045)
[2021-02-09] MEDS: ALBUT/IPRATROP 3MG/0.5MG NEB 3 ML VIAL NEB SCH (07:10)
[2021-02-09] MEDS: guaiFENesin 600 MG TABCR PO SCH (08:11)
[2021-02-09] MEDS: DICLOFENAC SODIUM 75 MG TABCR PO SCH (08:11)
[2021-02-09] MEDS: THEOPHYLLINE 300MG EXTENDED REL TAB PO SCH (08:12)
[2021-02-09] MEDS: MONTELUKAST SODIUM 10 MG TABLET PO SCH (08:12)
[2021-02-09] MEDS: FUROSEMIDE 20 MG TAB PO SCH (08:12)
[2021-02-09] MEDS: amLODIPine BESYLATE 5 MG TAB PO SCH (08:12)
[2021-02-09] MEDS: LOSARTAN POTASSIUM 50 MG TAB PO SCH (08:13)
[2021-02-09] MEDS: cefTRIAXone SODIUM 2,000 MG in DEXTROSE 5% 50 ML IV SCH (08:16)
[2021-02-09] MEDS ORDERED: PANTOprazole 40 MG TAB PO SCH (09:00)
[2021-02-09] MEDS ORDERED: ALBUT/IPRATROP 3MG/0.5MG NEB 3 ML VIAL NEB PRN (09:44)
--- NOTE | 2021-02-09 15:56 | Discharge Summary ---
Date of Service February 09, 2021 Admission HPI Per Admitting Provider The patient is a 46-year-old female with a past medical history including hypertension, lower extremity edema, asthma, GERD, COPD and morbid obesity. The patient reports that she has not worn the 2 to 3 L oxygen and CPAP that she has been prescribed. She reports that her cough is intermittently productive of green mucus. She denies any recent travels or sick exposures. She was COVID-19 negative in the emergency department this evening. Her last hospitalization was from 07/04-07/06/2018 for similar symptoms. Principal Diagnosis Acute on chronic hypoxic respiratory failure Discharge Exam Constitutional well developed, + morbidly obese and comfortable; not ill appearing Neck trachea midline, no thyromegaly Respiratory normal respiratory effort, lungs clear to auscultation Cardiovascular RRR, no murmur, no edema Gastrointestinal (Abdomen) normal bowel sounds, soft, nontender, no hepatosplenomegaly Musculoskeletal no cyanosis or clubbing, extremities motor strength 5/5 Skin no rashes, warm and dry Neurologic patellar DTR's 2+ bilat, sensation intact and PERRL, EOMI, accommodation nl, no face palsy, no dysarthria Psychiatric A+Ox3, euthymic affect Lymphatic no cervical or axillary lymphadenopathy Discharge Data Allergies Allergy/AdvReac Type Severity Reaction Status Date / Time rofecoxib Allergy Severe RESPIRATORY Verified 02/07/21 23:26 FAILURE Consultations 02/07/21 23:37 ED Decision to Admit Stat Hospital Course (1) Acute respiratory failure with hypoxia and hypercapnia: patient with chronic hypoxia, due to morbid obesity, suspect sleep apnea, may have degree of pulmonary hypertension now with acute dyspnea and hypoxia she should be on 2-3L at home, is not compliant should be on CPAP, needs a new sleep studay had some wheezing and increased work of breathing on admission treated with Solu Medrol, Ceftriaxone/zithromax, nebulizers on admission improved in first 48 hours, feeling better breathing comfortably on room air, 87%, discussed that she should wear her oxygen at home as prescribed she says she only wears it when she feels short of breath discharge home on Prednisone taper and Zithromax follow up with PCP encouraged her to follow up for repeat sleep study advised to stop using tobacco (2) Acute exacerbation of chronic obstructive pulmonary disease: better with Solu Medrol and nebulizers (3) Hypertension: Hypertension/lower extremity edema- Continue amlodipine and losartan. Hold diclofenac. Give furosemide 40 mg IV x1 in the ED on admission, and then continue 20 mg p.o. every morning She did have an echocardiogram on 07/06/2018, with ejection fraction 60-65% (4) Lower extremity edema: See above (5) MAYNOR (obstructive sleep apnea): really needs CPAP, she said she needs an updated sleep studay, does not have machine at home told her to wear oxygen at night if she is not willing to wear it during the day educated her on the importance of treating sleep apnea untreated it can lead to chronic hypoxia, pulmonary hypertension that is irreversible, important to prevent (6) GERD (gastroesophageal reflux disease): Continue pantoprazole 20 mg daily (7) Tobacco use disorder: Tobacco cessation counseling (8) Morbid obesity with BMI of 60.0-69.9, adult: Dietary counseling Total Time Total Time Spent Total Time Spent (In Minutes): 33 minutes Total Time Includes: Examination of the Patient, Discharge Planning and Medication Reconciliation Discharge Plan Discharge Items Patient Disposition: Home - Self-Care Reason For Visit: ACUTE RESP FAILURE WITH HYPOXIA Discharge Diagnosis: COPD/asthma exacerbation Chronic hypoxemia Goals: complete course of Prednisone and antibiotics use oxygen Activity: Resume your previous activity Weightbearing: Full weightbearing Non-emergency contact: Primary Care Provider Call non-emergency contact if: you have any medication questions and your symptoms worsen Follow-up/Referrals: Herminio Faith [Primary Care Provider] - (one week) Diet: Heart Healthy Addtl Attending Provider Instructions: Medications: - ZITHROMAX: 250mg daily for 3 more days - PREDNISONE: follow taper, starting tomorrow morning, take 40mg daily for three days, 20mg daily for three days, 10mg daily for three days then stop COPD/asthma exacerbation treated with IV steroids and antibiotics, nebulizers lungs are clear you are 87% on room air, I would recommend that you wear 2L nasal canula at all times, likely that your hypoxia is chronic if you do not wear it during the day then please wear it at night recommend you get a repeat sleep study that can be arranged by Dr. Faith, you would benefit from CPAP at night untreated sleep apnea can lead to worsening hypoxia, pulmonary hypertension (high pressures in lungs), these things are irreversible so important to prevent by using CPAP Pending Studies at Discharge: No Stand-Alone Forms: [facility], Smoking Cessation Medications and DC Order Prescriptions: New prednisone 20 mg tablet 20 mg PO UD 9 Days Qty: 11 RF: 0 azithromycin [Zithromax] 250 mg tablet 250 mg PO DAILY 3 Days Qty: 3 RF: 0 Continued pantoprazole 20 mg tablet,delayed release (DR/EC) 20 mg PO DAILY RF: 0 amlodipine 10 mg tablet 10 mg PO DAILY RF: 0 theophylline 600 mg tablet extended release 24 hr 300 mg PO DAILY RF: 0 diclofenac sodium 75 mg tablet,delayed release (DR/EC) 75 mg PO DAILY RF: 0 montelukast 10 mg tablet 10 mg PO DAILY RF: 0 furosemide 20 mg tablet 20 mg PO DAILY RF: 0 albuterol sulfate 90 mcg/actuation HFA aerosol inhaler 2 puff INHALATION Q6 PRN (Reason: Shortness Of Breath) RF: 0 losartan 100 mg tablet 100 mg PO DAILY RF: 0 Discharge Orders: Discharge Order (Routine); Ordered 02/09/21 Ordered By: Kurt Mcrae Admission Data Admit Date/Time: 02/08/21 00:07 Attending Provider: Kurt Mcrae Admit Provider: Isaak Joe Primary Care Provider: Herminio Faith Other Providers: Isaak Joe Other Interventions: Discharge Summary Assessment (RN) Last Done: 02/09/21 15:12 Coding Level of Care Code D/C Day Management >30 mins Diagnoses Acute respiratory failure with hypoxia and hypercapnia J96.01; J96.02 Acute exacerbation of chronic obstructive pulmonary disease J44.1 Hypertension I10 Lower extremity edema R60.0 MAYNOR (obstructive sleep apnea) G47.33 GERD (gastroesophageal reflux disease) K21.9 Tobacco use disorder F17.200 Morbid obesity with BMI of 60.0-69.9, adult E66.01; Z68.44
== END 2021-02-09 16:26 | disposition home or self-care (01) ==
LOC: ED 21:58 → SUATTDRO 02-08 00:07 → 2S 02-08 00:07 → INTOOBSV 02-08 00:07 → 2S 02-08 00:38